=== PATIENT | female | born 2000 | race Caucasian/White ===

== ENCOUNTER 2020-12-13 17:50 | Emergency (ER) | payer OTHER ==
[2020-12-13 19:17] VITALS: TEMP 99.1
[2020-12-13] MEDS ORDERED: ACETAMINOPHEN TAB 500 MG TAB PO STA (19:40)
[2020-12-13] MEDS ORDERED: ONDANSETRON 4 MG ODT STARTER PACK 2 TAB BTL PO STA (19:40)
--- NOTE | 2020-12-13 20:44 | US ---
EXAMINATION TYPE: US extremity nonvasculr ltd LT DATE OF EXAM: 12/13/2020 COMPARISON: NONE CLINICAL HISTORY: Left upper arm pain; implant eval. Left upper arm pain. implant eval. Patient had Nexplanon implant placed in October 2020. Scanned patient's area of concern and pain within the left medial upper arm. There appears to be a hyperechoic structure with posterior shadowing measuring 3.9 x 0.1 x 0.07 cm. IMPRESSION: There is linear structure in the subcutaneous tissues consistent with the implant. No flu id collection seen To suggest a reaction.
--- NOTE | 2020-12-13 20:57 | ED ---
Skin/Abscess/FB HPI - General Chief complaint: Extremity Problem,Nontraumatic Stated complaint: arm pain/nausea Time Seen by Provider: 12/13/20 19:24 Source: patient Mode of arrival: ambulatory Limitations: no limitations - History of Present Illness Initial comments: 20 year-old female patient presents for evaluation of left arm pain, nausea, and vomiting. Patient states she has a nexplanon implant to the left upper arm. States that yesterday she could not find it when trying to feel for it. States today she has a lot of pain in the muscle of her upper arm and is concerned it may have migrated. She denies taking anything for pain. States her period is late and she is concerned for . She denies fever or chills. Denies redness or swelling to the arm. - Related Data Home Medications Medication Instructions Recorded Confirmed Dextroamphetamine/Amphetamine 20 mg PO BID 12/13/20 12/13/20 [Adderall] Omeprazole 20 mg PO DAILY 12/13/20 12/13/20 Venlafaxine HCl ER [Effexor Xr] 37.5 mg PO DAILY 12/13/20 12/13/20 buPROPion HCL [Wellbutrin XL] 300 mg PO DAILY 12/13/20 12/13/20 Allergies Allergy/AdvReac Type Severity Reaction Status Date / Time No Known Allergies Allergy Verified 12/13/20 21:34 Review of Systems ROS Statement: Those systems with pertinent positive or pertinent negative responses have been documented in the HPI. ROS Other: All systems not noted in ROS Statement are negative. Past Medical History Past Medical History: No Reported History History of Any Multi-Drug Resistant Organisms: None Reported Additional Past Surgical History / Comment(s): laproscopic exploratory for endometriosis Past Psychological History: No Psychological Hx Reported Smoking Status: Never smoker Past Alcohol Use History: None Reported Past Drug Use History: None Reported General Exam Limitations: no limitations General appearance: alert, in no apparent distress, other (This is a well- developed, well-nourished adult female patient in no acute distress. Vital signs upon presentation are temperature 99.1F, pulse 100, respirations 18, pulse ox 98% on room air.) Eye exam: Present: normal appearance, PERRL, EOMI. Absent: scleral icterus, conjunctival injection, periorbital swelling ENT exam: Present: normal exam, normal oropharynx Respiratory exam: Present: normal lung sounds bilaterally. Absent: respiratory distress, wheezes, rales, rhonchi, stridor Cardiovascular Exam: Present: regular rate, normal rhythm, normal heart sounds. Absent: systolic murmur, diastolic murmur, rubs, gallop, clicks GI/Abdominal exam: Present: soft, normal bowel sounds. Absent: distended, tenderness, guarding, rebound, rigid Extremities exam: Present: normal inspection, full ROM, normal capillary refill, other (Tenderness over the left medial upper arm). Absent: tenderness, pedal edema, joint swelling, calf tenderness Neurological exam: Present: alert, oriented X3, CN II-XII intact Psychiatric exam: Present: normal affect, normal mood Skin exam: Present: warm, dry, intact, normal color. Absent: rash Course Vital Signs 12/13/20 12/13/20 12/13/20 19:13 20:46 22:08 Temperature 99.1 F Pulse Rate 100 72 74 Respiratory 18 20 18 Rate Blood Pressure 126/78 132/77 O2 Sat by Pulse 98 96 98 Oximetry Medical Decision Making - Medical Decision Making 20-year-old female patient presents to the emergency department today for evaluation of left upper arm pain, nausea, vomiting. Patient is concerned her control implant has migrated is causing her pain. Physical examination did reveal presence of a linear induration to the left upper arm consistent with the implant. Patient states tender to touch. She is afebrile. She is given Zofran, Tylenol, and ultrasound of the left upper arm. Ultrasound did reveal that the implant is in the soft tissue with no fluid collection. Patient is feeling better upon reevaluation states her pain is improved and the nausea is improved. She'll be discharged follow-up with her CARDIOVASCULAR OPERATING ROOM NURSE for recheck and reevaluation of the implant. Return parameters discussed in detail. She verbalizes understanding and agrees with this plan. Case discussed with my attending Dr. Graham. - Lab Data Lab Results 12/13/20 12/13/20 Range/Units 21:30 21:30 Urine Color Yellow Urine Appearance Cloudy H (Clear) Urine pH 5.5 (5.0-8.0) Ur Specific [place] 1.019 (1.001-1.035) Urine Protein Trace H (Negative) Urine Glucose (UA) Negative (Negative) Urine Ketones Negative (Negative) Urine Blood Negative (Negative) Urine Nitrite Negative (Negative) Urine Bilirubin Negative (Negative) Urine Urobilinogen <2.0 (<2.0) mg/dL Ur Leukocyte Esterase Trace H (Negative) Urine RBC 2 (0-5) /hpf Urine WBC 7 H (0-5) /hpf Ur Squamous Epith Cells 3 (0-4) /hpf Amorphous Sediment Occasional H (None) /hpf Hyaline Casts 5 H (0-2) /lpf Urine Mucus Many H (None) /hpf Urine HCG, Qual Not Detected (Not Detectd) - Radiology Data Radiology results: report reviewed Ultrasound of the left upper extremities obtained. Report was reviewed in its entirety. Impression by Dr. Mccrary shows linear structural subcutaneous tissues consistent with an plan. No fluid collection seen to suggest a reaction. Disposition Clinical Impression: Vomiting, Left arm pain Disposition: HOME SELF-CARE Condition: Good Instructions (If sedation given, give patient instructions): Acute Nausea and Vomiting (ED), Arm Pain (ED) Additional Instructions: Follow-up with your CARDIOVASCULAR OPERATING ROOM NURSE for further evaluation of your implant. Return for any new, worsening, or concerning symptoms. Is patient prescribed a controlled substance at d/c from ED?: No Referrals: Nonstaff,Physician [Primary Care Provider] - 1-2 days Time of Disposition: 21:58
[2020-12-13 21:46] LABS: Amorphous Sediment,Urine Occasional /hpf; Appearance,Urine Cloudy (Clear); Bilirubin,Urine Negative (Negative); Blood,Urine Negative (Negative); Color,Urine Yellow; Glucose,Urine (UA) Negative (Negative); Hyaline Casts,Urine 5 /lpf (0-2); Ketones,Urine Negative (Negative); Leukocyte Esterase,Urine Trace (Negative); Mucus,Urine Many /hpf; Nitrite,Urine Negative (Negative); PH, Urine 5.5 (5.0-8.0); Protein,Urine Trace (Negative); RBC,Urine 2 /hpf (0-5); Specific Gravity,Urine 1.019 (1.001-1.035); Squamous Epithelial Cell,Urine 3 /hpf (0-4); Urobilinogen,Urine <2.0 mg/dL (<2.0); WBC,Urine 7 /hpf (0-5)
[2020-12-13 22:09] VITALS: BP 132/77; PULSE 74; RESP 18
== END 2020-12-13 22:09 | disposition home or self-care (01) ==
LOC: EC 17:50
DX: R11.2 Nausea with vomiting, unspecified (principal); M79.622 Pain in left upper arm; Z79.899 Other long term (current) drug therapy
CPT/HCPCS: 81001; 81025; 76882; 99284; S0119